=== PATIENT | male | born 1990 | race Caucasian/White ===

== ENCOUNTER 2022-02-12 18:06 | Emergency (ER) | payer BC ==
[2022-02-12 18:11] VITALS: BP 145/82; PULSE 69; RESP 20; TEMP 98.3
--- NOTE | 2022-02-12 18:41 | CT ---
EXAMINATION TYPE: CT brain cspine wo con DATE OF EXAM: 02/12/2022 COMPARISON: None HISTORY: Fall from [address] DLP: 1440 mGycm Automated exposure control for dose reduction was used. Ventricles have normal size. There is no mass effect or midline shift. There is no sign of intracrani al hemorrhage. Calvarium is intact. Skull base is intact. There is normal aeration of the mastoid sin uses. The cervical vertebra have normal spacing and alignment. Posterior elements are intact. No compressio n fracture. Facet joints appear normal. Prevertebral soft tissues are intact. IMPRESSION: Negative CT scan cervical spine. Negative CT scan of the brain.
[2022-02-12] MEDS ORDERED: KETOROLAC 15 MG/ML 1 ML VIAL IM STA (19:43)
[2022-02-12] MEDS ORDERED: BACLOFEN 10 MG TAB PO STA (19:43)
--- NOTE | 2022-02-12 20:08 | ED ---
Fall HPI - General Chief Complaint: Fall Stated Complaint: Fall 6ft Time Seen by Provider: 02/12/22 19:33 Source: patient Mode of arrival: ambulatory - History of Present Illness Initial Comments: Patient is a 31-year-old male who presents for evaluation of a fall. Patient's is at bedside and helps provide history. Patient states he was in a horse stable today on a ladder when he had a fall at about 5-6 feet high. Patient cannot recall how the fall occurred although he states he felt well before the fall with no dizziness or lightheadedness. Patient states he likely lost consciousness. Patients believes the horse may have knocked the ladder over. Patient was found by his brother on the ground in the horse stable. He denies blood thinner use. Patient reports lower back pain. There is no radiation. He denies numbness or tingling in the groin region and loss of bowel/bladder function. Patient also reports an intermittent headache. Patient's states that patient has had trouble recalling events surrounding the incident and has been "fuzzy". Patient has no other concerns at this time including fever, chills, shortness of breath, cough, chest pain, dizziness, lightheadedness, abdominal pain, nausea, and vomiting. - Related Data Previous Rx's Medication Instructions Recorded Baclofen 10 mg PO TID PRN #15 tab 02/12/22 Lidocaine 5% Patch [Lidoderm 5% 1 patch TOPICAL DAILY PRN #5 patch 02/12/22 Patch] Allergies Allergy/AdvReac Type Severity Reaction Status Date / Time No Known Allergies Allergy Verified 02/12/22 20:21 Review of Systems ROS Statement: Those systems with pertinent positive or pertinent negative responses have been documented in the HPI. ROS Other: All systems not noted in ROS Statement are negative. Past Medical History Past Medical History: No Reported History History of Any Multi-Drug Resistant Organisms: None Reported Past Surgical History: No Surgical Hx Reported Past Psychological History: No Psychological Hx Reported Smoking Status: Never smoker Past Alcohol Use History: Occasional Past Drug Use History: None Reported General Exam Limitations: no limitations General appearance: alert, in no apparent distress Head exam: Present: atraumatic, normocephalic, normal inspection Eye exam: Present: normal appearance, PERRL, EOMI. Absent: scleral icterus, conjunctival injection, periorbital swelling Neck exam: Present: normal inspection, full ROM Respiratory exam: Present: normal lung sounds bilaterally. Absent: respiratory distress, wheezes, rales, rhonchi, stridor Cardiovascular Exam: Present: regular rate, normal rhythm, normal heart sounds. Absent: systolic murmur, diastolic murmur, rubs, gallop, clicks GI/Abdominal exam: Present: soft, normal bowel sounds. Absent: distended, tenderness, guarding, rebound, rigid Back exam: Present: normal inspection, full ROM, vertebral tenderness (Lumbosacral region) Neurological exam: Present: alert, oriented X3, CN II-XII intact Psychiatric exam: Present: normal affect, normal mood Skin exam: Present: warm, dry, intact, normal color. Absent: rash Course Vital Signs 02/12/22 18:08 Temperature 98.3 F Pulse Rate 69 Respiratory 20 Rate Blood Pressure 145/82 O2 Sat by Pulse 99 Oximetry Medical Decision Making - Medical Decision Making This is a 31-year-old male who presents for evaluation of fall off a 6 feet ladder. Thorough history and examination were performed. Patient is alert and oriented 4. He is well-appearing and in no apparent distress. Patient likely lost consciousness. He is not on blood thinners. He is experiencing some retro grade amnesia regarding the fall. Patient has lower back pain. He currently denies headache. There are no focal deficits or weakness on my neuro exam. CT of the brain and C-spine was obtained which shows no abnormalities. Lumbosacral xray was obtained which is negative for fracture. Patient given Toradol and muscle relaxer for pain. On reevaluation he states his pain is well controlled. He will be discharged with muscle relaxer and lidocaine patches. Concussion education was provided. Patient instructed to follow-up with his primary care provider. Return parameters discussed. Patient and his verbalize understanding and are agreeable to plan. Dr. Ovalles is my attending. - EKG Data EKG Comments: EKG taken at 20:20 Sinus bradycardia Ventricular rate 59 AZ interval 139 QRS duration 96 QTC 387 Disposition Clinical Impression: Fall, Concussion Disposition: HOME SELF-CARE Condition: Good Instructions (If sedation given, give patient instructions): Concussion (ED) Additional Instructions: Please take baclofen and apply lidocaine patches as directed. Do not drink alcohol or operate machinery while taking baclofen. Please avoid strenuous activity for the next 24-48 hours. Follow-up with primary care provider in one to 2 days. Return to the emergency department if you experience new, concerning, or worsening symptoms. Prescriptions: Baclofen 10 mg PO TID PRN #15 tab PRN Reason: Pain Lidocaine 5% Patch [Lidoderm 5% Patch] 1 patch TOPICAL DAILY PRN #5 patch PRN Reason: Pain Is patient prescribed a controlled substance at d/c from ED?: No Referrals: Kenny Carreno DO [Primary Care Provider] - 1-2 days Time of Disposition: 20:53
--- NOTE | 2022-02-12 20:34 | XR ---
EXAMINATION TYPE: XR lumbosacral spine min 4V DATE OF EXAM: 02/12/2022 COMPARISON: NONE HISTORY: Fall. Pain TECHNIQUE: 5 views FINDINGS: The lumbar vertebrae have normal alignment. Posterior elements are intact. No compression f racture. Sacroiliac joints are intact. IMPRESSION: Negative lumbar spine exam. No fracture.
== END 2022-02-12 21:01 | disposition home or self-care (01) ==
LOC: EC 18:06
DX: S06.0X1A Concussion with loss of consciousness of 30 minutes or less, initial encounter (principal); W11.XXXA Fall on and from ladder, initial encounter
CPT/HCPCS: 99284; 96372; 93005; 72110; 72125; 70450; J1885